=== PATIENT | male | born 1955 | race African-American/Black ===

== ENCOUNTER 2018-04-12 13:18 | Outpatient (CLI) | payer OTHER ==
[2018-04-12 13:54] LABS: Hematocrit 49.7 % (35.5-45.6); Hemoglobin 16.9 gm/dl (11.8-15.2); Mean Corpuscular HGB Conc 34 % (32-34); Mean Corpuscular Volume 88 fl (84-94); Platelet Count 270 K/mm3 (140-440); Red Blood Count 5.68 M/mm3 (3.65-5.03); Red Cell Distribution Width 13.7 % (13.2-15.2)
[2018-04-12 14:20] LABS: Alanine Aminotransferase 42 units/L (7-56); Albumin 4.9 g/dL (3.9-5); BUN/Creatinine Ratio 18; Blood Urea Nitrogen 14 mg/dL (9-20); Calcium 9.8 mg/dL (8.4-10.2); HDL Cholesterol 72 mg/dL (40-59); Hemolysis Index 29; LDL Cholesterol,Direct 117 mg/dL (50-130)
--- NOTE | 2018-04-12 14:37 | XRay Report ---
ROUTINE CHEST, TWO VIEWS: HISTORY: Chronic cough. The trachea, heart, mediastinal contour, lung perkins and bony thorax are unremarkable. IMPRESSION: Unremarkable chest x-ray.
--- NOTE | 2018-04-12 14:37 | Fluoroscopy Report ---
UPPER GI AIR CONTRAST: History: Reflux disease, chronic cough FINDINGS: The patient ingested barium without difficulty. The esophageal contour is normal. There are no ulcerations or filling defects seen in the esophagus. There is normal esophageal motility. There is no hiatal hernia or reflux. The gastric contour and position appear normal. There are no ulcerations or filling defects in the stomach. The duodenal bulb and duodenal sweep appear normal. IMPRESSION: Negative double contrast upper GI examination. No episodes of reflux were witnessed during this exam.
== END 2018-04-12 13:19 | disposition home or self-care (01) ==
LOC: FLUORO 13:18
PROVIDERS: ATTEND Internal Medicine
DX: K21.9 Gastro-esophageal reflux disease without esophagitis (principal)
CPT/HCPCS: 36415; 71046; 74247; 80053; 80061; 82785; 84436; 84443; 85027